=== PATIENT | female | born 1955 ===

== ENCOUNTER 2019-10-14 06:16 | Outpatient (CLI) | payer SELFPAY ==
[2019-10-14 08:27] LABS: HEMOGLOBIN A1C 5.7 % (4.5-6.2)
[2019-10-14 08:42] LABS: CHOL/HDL RATIO 3.21 (0.00-4.99)
== END 2019-10-14 23:59 | disposition home or self-care (01) ==
LOC: HW HEART 06:16
DX: Z00.00 Encounter for general adult medical examination without abnormal findings (principal)
CPT/HCPCS: 36415

== ENCOUNTER 2020-02-10 06:16 | Outpatient (CLI) | payer SELFPAY ==
[2020-02-10 08:40] LABS: HEMOGLOBIN A1C 5.5 % (4.5-6.2)
[2020-02-10 08:53] LABS: CHOL/HDL RATIO 3.13 (0.00-4.99)
== END 2020-02-10 23:59 | disposition home or self-care (01) ==
LOC: HW HEART 06:16
DX: Z13.6 Encounter for screening for cardiovascular disorders (principal)
CPT/HCPCS: 36415; G0438